=== PATIENT | male | born 2000 ===

== ENCOUNTER 2019-02-11 21:52 | Emergency (ER) | payer BC ==
[~2019-02-11] VITALS: Ht 177.8 cm; Wt 66.0 kg
[2019-02-11 22:50] VITALS: BP 129/82
== END 2019-02-11 22:53 | disposition home or self-care (01) ==
LOC: ER 21:52
DX: H66.43 Suppurative otitis media, unspecified, bilateral (principal)
CPT/HCPCS: 99281